=== PATIENT | male | born 1980 | race Caucasian/White ===

== ENCOUNTER 2017-03-08 11:36 | Emergency (ER) | payer MEDICARE, OTHER ==
[~2017-03-08] VITALS: Ht 198.1 cm; Wt 226.8 kg
[2017-03-08 11:44] VITALS: BP 123/59
--- NOTE | 2017-03-08 11:58 | PHYS DOC ---
Past Medical History Past Medical History: Diabetes-Type II, High Cholesterol, Hypertension, Hypothyroid Past Surgical History: Tonsillectomy, Other Additional Past Surgical Histo: sinuses Alcohol Use: Occasionally Drug Use: None Adult General Chief Complaint Chief Complaint: FINGER INJURY HPI HPI Patient is a 36 year old female presents the ED complaining of finger injury 2 hours. Patient states he was closing the trunk of his car and got his finger stuck in it. Tetanus up-to-date. Describes as sharp. Rates pain as 7 on a 10. Denies fever, decreased range of motion, nausea/vomiting, headache, laceration. Review of Systems Review of Systems Constitutional: Denies fever or chills [] Eyes: Denies change in visual acuity, redness, or eye pain [] HENT: Denies nasal congestion or sore throat [] Respiratory: Denies cough or shortness of breath [] Cardiovascular: No additional information not addressed in HPI [] GI: Denies abdominal pain, nausea, vomiting, bloody stools or diarrhea [] : Denies dysuria or hematuria [] Musculoskeletal: Denies back pain. Complains of finger pain [] Integument: Denies rash or skin lesions [] Neurologic: Denies headache, focal weakness or sensory changes [] Endocrine: Denies polyuria or polydipsia [] Current Medications Current Medications Current Medications Medications (Trade) Dose Ordered Sig/Krishna Start Time Stop Time Status Last Admin Dose Admin Ibuprofen (Motrin) 800 mg 1X ONCE 03/08/17 12:45 03/08/17 12:45 DC 03/08/17 12:39 800 MG Allergies Allergies Allergies Coded Allergies Type Severity Reaction Last Updated Verified No Known Drug Allergies 01/10/16 No Physical Exam Physical Exam Constitutional: Well developed, well nourished, no acute distress, non-toxic appearance. [] HENT: Normocephalic, atraumatic, bilateral external ears normal, oropharynx moist, no oral exudates, nose normal. [] Eyes: PERRLA, EOMI, conjunctiva normal, no discharge. [] Neck: Normal range of motion, no tenderness, supple, no stridor. [] Cardiovascular:Heart rate regular rhythm, no murmur [] Lungs & Thorax: Bilateral breath sounds clear to auscultation [] Abdomen: Bowel sounds normal, soft, no tenderness, no masses, no pulsatile masses. [] Skin: Warm, dry, no erythema, no rash SMALL RIGHT 2ND FINGER DISTAL ABRASION. NO NAIL INJURY. [] Back: No tenderness, no CVA tenderness. [] Extremities: MILD TENDERNESS TO RIGHT 2ND FINGER, no cyanosis, no clubbing, ROM intact, no edema. [] Neurologic: Alert and oriented X 3, normal motor function, normal sensory function, no focal deficits noted. [] Psychologic: Affect normal, judgement normal, mood normal. [] Current Patient Data Vital Signs Vital Signs Date Time Temp Pulse Resp B/P (MAP) Pulse Ox O2 Delivery O2 Flow Rate FiO2 03/08/17 11:44 98.9 104 16 93 Room Air 98.9 EKG EKG [] Radiology/Procedures Radiology/Procedures PROCEDURE: FINGER(S) RIGHT EXAM: Right second finger, 3 views. HISTORY: Blunt trauma. COMPARISON: None. FINDINGS: Frontal, lateral and oblique views of the right second finger are obtained. There is no acute fracture, dislocation or subluxation. No foreign body is seen. There is slight deformity of the proximal fifth metacarpal, likely due to a healed fracture. IMPRESSION: No acute osseous finding.[] Impressions: Discussed imaging with patient. Tetanus up to date. Patient's pain improved. Vital stable, no acute distress. Finger splint placed. Neurovascular intact post placement. Discussed follow-up with patient. Discussed reasons to return to the ED. Patient understands and agrees with plan. Course & Med Decision Making Course & Med Decision Making Pertinent Labs and Imaging studies reviewed. (See chart for details) [] Dragon Disclaimer Dragon Disclaimer This electronic medical record was generated, in whole or in part, using a voice recognition dictation system. Departure Departure Impression: Primary Impression: Finger sprain Disposition: HOME, SELF-CARE Condition: STABLE Referrals: UNKNOWN PCP NAME (PCP) PEDRO TYSON MD Patient Instructions: Finger Sprain DEX STEVENSON Mar 08, 2017 11:58
--- NOTE | 2017-03-08 12:14 | RAD ---
EXAM: Right second finger, 3 views. HISTORY: Blunt trauma. COMPARISON: None. FINDINGS: Frontal, lateral and oblique views of the right second finger are obtained. There is no acute fracture, dislocation or subluxation. No foreign body is seen. There is slight deformity of the proximal fifth metacarpal, likely due to a healed fracture. IMPRESSION: No acute osseous finding.
[2017-03-08] MEDS ORDERED: IBUPROFEN 800 MG TABLET. PO ONE (12:45)
== END 2017-03-08 12:42 | disposition home or self-care (01) ==
LOC: ER 11:36
DX: S63.612A Unspecified sprain of right middle finger, initial encounter (principal); E03.9 Hypothyroidism, unspecified; E11.9 Type 2 diabetes mellitus without complications; E78.00 Pure hypercholesterolemia, unspecified; I10 Essential (primary) hypertension; W22.8XXA Striking against or struck by other objects, initial encounter; Y93.89 Activity, other specified; Y99.8 Other external cause status; Y92.89 Other specified places as the place of occurrence of the external cause
CPT/HCPCS: 29130; 73140; 99284-25